=== PATIENT | female | born 1980 | race Caucasian/White ===

== ENCOUNTER 2018-02-24 00:25 | Observation (INO) | payer SELFPAY ==
[2018-02-24] MEDS ORDERED: Ondansetron 4 MG/2 ML SDV ONE (00:44)
[2018-02-24] MEDS ORDERED: Sodium Chloride 0.9% 1,000 ML IV ONE (00:51)
[2018-02-24 01:19] LABS: CHLORIDE,CL 107 mmol/L (101-111); SODIUM,NA 136 mmol/L (135-145)
[2018-02-24] MEDS ORDERED: NS + KCl 20mEq/L 1,000 ML IV SCH (01:30)
[2018-02-24] MEDS: Sodium Chloride 0.9% 10 ML Syringe FLUSH PRN ×2 (01:35→20:59)
[2018-02-24] MEDS ORDERED: Potassium Chloride 10 MEQ Tab.ER PO ONE (01:39)
--- NOTE | 2018-02-24 01:40 | EDM.PDOC ---
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 Provider was called to OB Stat. Pt states she felt she was having palpitations so she was checking her pulse. She stood up and states she woke up on her back on the floor. She states when she woke up she walked to the chair. She again lost consciousness and was lowered to the floor by her co-workers. Patient c/o feeling weak, and pain in the occiputal portion of her head after she hit it in the first fall. She also c/o right lower leg/ankle pain. Patient states she has hyperthyroidism and takes Tapazole. She states she has been feeling weak and not well for the past week. She states she has not taken her Tapazole for the past few days. She had taken an Atenolol a few hours prior to the episode for the palpitations she was having. She states she takes this PRN. Onset: Today, Sudden Occipital Pain Score (Numeric/FACES): 5 - Related Data Allergies Allergy/AdvReac Type Severity Reaction Status Date / Time propranolol Allergy Fainting Verified 02/24/18 00:59 Home Meds: Home Meds Methimazole 10 mg PO TID 10/01/16 [History] ClonazePAM [KlonoPIN] 1 mg PO BID PRN 02/24/18 [History] FLUoxetine [PROzac] 20 mg PO DAILY 02/24/18 [History] Past Medical History HEENT History: Reports: Impaired Vision, Other (See Below) Other HEENT History: Wears glasses & Contacts Cardiovascular History: Reports: Hypertension, Other (See Below) Other Cardiovascular History: Throid problems. 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 OB/BYN History: ovarian cysts Neurological History: Reports: Vertigo Psychiatric History: Reports: Anxiety, Depression Endocrine/Metabolic History: Reports: Hyperthyroidism - Infectious Disease History Infectious Disease History: Reports: Chicken Pox - Past Surgical History Respiratory Surgical History: Reports: Other (See Below) Other Respiratory Surgeries/Procedures: Breast reduction GI Surgical History: Reports: Cholecystectomy Female Surgical History: Reports: Breast Reduction, Section, Hysterectomy Endocrine Surgical History: Reports: None Other Musculoskeletal Surgeries/Procedures:: breast reduction Social & Family History - Family History Family Medical History: Noncontributory Musculoskeletal: Reports: RA, SLE - Tobacco Use Smoking Status *Q: Current Every Day Smoker Years of Tobacco use: 3 Packs/Tins Daily: 0.2 Used Tobacco, but Quit: No Month/Year Tobacco Last Used: October Second Hand Smoke Exposure: No - Caffeine Use Caffeine Use: Reports: Soda - Recreational Drug Use Recreational Drug Use: No ED ROS GENERAL - Review of Systems Review Of Systems: ROS reveals no pertinent complaints other than HPI. - Physical Exam Exam: See Below Exam Limited By: No Limitations General Appearance: Lethargic Eye Exam: Bilateral Eye: EOMI, PERRL (4 sluggish) Ears: Normal External Exam, Hearing Grossly Normal Nose: Normal Inspection Throat/Mouth: Normal Inspection, Normal Voice, No Airway Compromise Head Exam: Atraumatic, Normocephalic, Scalp Tenderness (occiputal after fall) Neck: Normal Inspection, Supple, Non-Tender, Full Range of Motion Respiratory/Chest: No Respiratory Distress, Lungs Clear, Normal Breath Sounds, No Accessory Muscle Use, Chest Non-Tender Cardiovascular: Normal Peripheral Pulses, Regular Rate, Rhythm, No Edema, No Gallop, No JVD, No Murmur, No Rub GI/Abdominal: Normal Bowel Sounds, Soft, Non-Tender, No Organomegaly, No Distention, No Abnormal Bruit, No Mass, Pelvis Stable (Female) Exam: Deferred Rectal (Female) Exam: Deferred Neuro Exam (Abbreviated): Alert, Oriented, CN II-XII Intact, Normal Cognition, Normal Reflexes, No Motor/Sensory Deficits Back Exam: Normal Inspection, Full Range of Motion, NT Extremities: Normal Inspection, Normal Range of Motion, No Pedal Edema, Normal Capillary Refill, Leg Pain (right lower leg/ankle) Psychiatric: Normal Affect, Normal Mood Skin Exam: Warm, Dry, Intact, Normal Color, No Rash EKG INTERPRETATION EKG Date: 02/24/18 Time: 00:43 Rhythm: Other (sinus tach) Comparison: No Change Course - Vital Signs Last Recorded V/S: Last Vital Signs Temp 99.1 F 02/24/18 01:51 Pulse 116 H 02/24/18 01:51 Resp 20 02/24/18 01:51 BP 135/85 02/24/18 01:51 Pulse Ox 96 02/24/18 01:51 Orthostatic Blood Pressure [ 116/79 Standing] Orthostatic Blood Pressure [ 129/74 Sitting] Orthostatic Blood Pressure [ 147/84 Supine] - Orders/Labs/Meds Orders: Active Orders 24 hr Category Date Time Status EKG 12 Lead [EKG Documentation Completion] [RC] URGENT Care 02/24/18 00:56 Active EKG Documentation Completion [RC] STAT Care 02/24/18 00:59 Active Peripheral IV Care [RC] . DIRECTED Care 02/24/18 00:59 Active Ankle Min 3V Rt [CR] Urgent Exams 02/24/18 00:57 Taken Head wo Cont [CT] Urgent Exams 02/24/18 00:54 Ordered DRUG SCREEN URINE BIORAD [URCHEM] Stat Lab 02/24/18 01:17 Ordered FREE T3 [REF] Stat Lab 02/24/18 00:45 Received FREE T4 [REF] Stat Lab 02/24/18 00:45 Received UA W/MICROSCOPIC [URIN] Stat Lab 02/24/18 00:59 Ordered NS + KCl 20mEq/L [Normal Saline with 20 mEq KCl] 1,000 Med 02/24/18 01:30 Active ml IV ASDIRECTED Sodium Chloride 0.9% [Saline Flush] Med 02/24/18 00:58 Active 10 ml FLUSH ASDIRECTED PRN Peripheral IV Insertion Adult [OM.PC] Stat Oth 02/24/18 00:58 Ordered Medication Orders Potassium Chloride/Sodium Chloride (Normal Saline With 20 Meq Kcl) 1,000 mls @ 999 mls/hr IV ASDIRECTED SARAH Last Admin: 02/24/18 01:38 Dose: 999 mls/hr Sodium Chloride (Saline Flush) 10 ml FLUSH ASDIRECTED PRN PRN Reason: Keep Vein Open Last Admin: 02/24/18 01:35 Dose: 10 ml Labs: Laboratory Tests 02/24/18 02/24/18 02/24/18 Range/Units 00:45 00:45 00:45 WBC 16.3 H (5.0-10.0) 10^3/uL RBC 4.91 (4.2-5.4) 10^6/uL Hgb 15.3 D (12.0-16.0) g/dL Hct 43.8 (37.0-47.0) % MCV 89.2 (80-100) fL MCH 31.2 (27.0-34.0) pg MCHC 34.9 (33.0-35.0) g/dL Plt Count 385 D (150-450) 10^3/uL Neut % (Auto) 63.1 (42.2-75.2) % Lymph % (Auto) 27.0 (20.5-50.1) % [place] % (Auto) 9.7 H (2-8) % Eos % (Auto) 0.1 L (1.0-3.0) % Baso % (Auto) 0.1 (0.0-1.0) % Sodium 136 (135-145) mmol/L Potassium 2.9 L (3.6-5.0) mmol/L Chloride 107 (101-111) mmol/L Carbon Dioxide 19.0 L (21.0-31.0) mmol/L Anion Gap 12.9 BUN 27 H (7-18) mg/dL Creatinine 1.0 (0.6-1.3) mg/dL Est Cr Clr Drug Dosing 58.12 mL/min Estimated GFR (MDRD) > 60 BUN/Creatinine Ratio 27.00 Glucose 131 H (74-105) mg/dL Calcium 8.3 L (8.4-10.2) mg/dl Total Bilirubin 0.8 (0.2-1.0) mg/dL AST 27 (10-42) IU/L ALT 27 (10-60) IU/L Alkaline Phosphatase 93 (42-121) IU/L Troponin I < 0.02 (0.00-0.02) ng/ml Total Protein 7.4 (6.7-8.2) g/dl Albumin 4.0 (3.2-5.5) g/dl Globulin 3.4 Albumin/Globulin Ratio 1.18 TSH, Ultra Sensitive 0.07 L (0.45-5.33) uIu/mL Meds: Medications Generic Name Dose Route Start Last Admin Trade Name Freq PRN Reason Stop Dose Admin Potassium Chloride/Sodium Chloride 1,000 mls @ 999 mls/hr 02/24/18 01:30 11/01 01:38 Normal Saline With 20 Meq Kcl IV 999 mls/hr ASDIRECTED SARAH Administration Sodium Chloride 10 ml 02/24/18 00:58 02/24/18 01:35 Saline Flush FLUSH 10 ml ASDIRECTED PRN Administration Keep Vein Open Discontinued Medications Generic Name Dose Route Start Last Admin Trade Name Michael PRN Reason Stop Dose Admin Sodium Chloride 1,000 mls @ 999 mls/hr 02/24/18 00:51 02/24/18 00:32 Normal Saline IV 02/24/18 01:51 999 mls/hr .BOLUS ONE Administration Metoprolol Tartrate 50 mg 02/24/18 02:30 Lopressor PO 02/24/18 02:31 ONETIME ONE Ondansetron HCl Confirm 02/24/18 00:44 02/24/18 00:45 Zofran Administered 02/24/18 00:45 4 mg Dose Administration 4 mg .ROUTE .STK-MED ONE Ondansetron HCl 4 mg 02/24/18 01:43 02/24/18 01:47 Zofran Odt PO 02/24/18 01:44 4 mg ONETIME ONE Administration Potassium Chloride 20 meq 02/24/18 01:39 02/24/18 01:47 Klor-Con 10 PO 02/24/18 01:40 20 meq ONETIME ONE Administration - Radiology Interpretation Free Text/Narrative:: Right ankle xray: IMPRESSION: No evidence for acute fracture or dislocation. Thank you for allowing us to participate in the care of your patient. Dictated and Authenticated by: Nick Bass MD 02/24/2018 1:24 AM Central Time ([place] & [place]) Ct of head without contrast: IMPRESSION: No evidence for acute intracranial pathology. Thank you for allowing us to participate in the care of your patient. Dictated and Authenticated by: Nick Bass MD 02/24/2018 1:33 AM Central Time ([place] & [place]) See rad report - Re-Assessments/Exams Free Text/Narrative Re-Assessment/Exam: 02/24/18 02:48 Discussed pt case with Dr. Holm. He agreed to admit the patient observation. His instructions were for a dose of Metoprolol 50mg be given to the patient prior to admit. He would also like the patient to take a dose of her home medication Tapazole. Departure - Departure Time of Disposition: 02:50 Disposition: Refer to Observation Condition: Fair Clinical Impression: Hypokalemia, Graves disease Syncopal episodes Qualifiers: Syncope type: unspecified Qualified Code(s): R55 - Syncope and collapse - Discharge Information Forms: ED Department Discharge - My Orders Last 24 Hours: My Active Orders 02/24/18 00:45 FREE T3 [REF] Stat FREE T4 [REF] Stat 02/24/18 00:54 Head wo Cont [CT] Urgent 02/24/18 00:56 EKG 12 Lead [EKG Documentation Completion] [RC] URGENT 02/24/18 00:57 Ankle Min 3V Rt [CR] Urgent 02/24/18 00:58 Sodium Chloride 0.9% [Saline Flush] 10 ml FLUSH ASDIRECTED PRN Peripheral IV Insertion Adult [OM.PC] Stat 02/24/18 00:59 EKG Documentation Completion [RC] STAT Peripheral IV Care [RC] . DIRECTED UA W/MICROSCOPIC [URIN] Stat 02/24/18 01:17 DRUG SCREEN URINE BIORAD [URCHEM] Stat 02/24/18 01:30 NS + KCl 20mEq/L [Normal Saline with 20 mEq KCl] 1,000 ml IV ASDIRECTED - Assessment/Plan Last 24 Hours: My Active Orders 02/24/18 00:45 FREE T3 [REF] Stat FREE T4 [REF] Stat 02/24/18 00:54 Head wo Cont [CT] Urgent 02/24/18 00:56 EKG 12 Lead [EKG Documentation Completion] [RC] URGENT 02/24/18 00:57 Ankle Min 3V Rt [CR] Urgent 02/24/18 00:58 Sodium Chloride 0.9% [Saline Flush] 10 ml FLUSH ASDIRECTED PRN Peripheral IV Insertion Adult [OM.PC] Stat 02/24/18 00:59 EKG Documentation Completion [RC] STAT Peripheral IV Care [RC] . DIRECTED UA W/MICROSCOPIC [URIN] Stat 02/24/18 01:17 DRUG SCREEN URINE BIORAD [URCHEM] Stat 02/24/18 01:30 NS + KCl 20mEq/L [Normal Saline with 20 mEq KCl] 1,000 ml IV ASDIRECTED
[2018-02-24] MEDS ORDERED: Ondansetron 4 MG Tab.DIS PO ONE (01:43)
[2018-02-24] MEDS ORDERED: Metoprolol Tartrate 50 MG Tab PO ONE (02:30)
[2018-02-24] MEDS ORDERED: Sodium Chloride 0.9% 1,000 ML IV SCH (10:15)
[2018-02-24] MEDS: Nicotine 7 MG/24 Hr Patch TRDERM SCH (10:56)
[2018-02-24] MEDS: Sodium Chloride 0.9% with KCl 1,000 ML IV SCH ×3 (10:57→21:02)
[2018-02-24] MEDS: Methimazole 5 MG Tab PO SCH ×3 (10:57→20:42)
[2018-02-24] MEDS: FLUoxetine 10 MG Cap PO SCH (10:57)
[2018-02-24] MEDS: Atenolol 50 MG Tab PO SCH ×2 (11:01→20:43)
[2018-02-24] MEDS: Ibuprofen 400 MG Tab PO PRN ×3 (11:01→22:51)
[2018-02-24] MEDS ORDERED: Loperamide 2 MG Cap PO PRN (11:25)
--- NOTE | 2018-02-24 11:26 | PCM.HP ---
H&P History of Present Illness - General Date of Service: 02/24/18 Admit Problem/Dx: Admission Diagnosis/Problem Admission Diagnosis/Problem Hyperthyroidism Source of Information: Patient History Limitations: Reports: No Limitations - History of Present Illness Initial Comments - Free Text/Narative: 37 yo F with PMH of Graves' disease/hyperthyroidism diagnosed almost one year ago and being followed by Dr. Saavedra (Sales Assistant) who was evaluated in the ED in the early hours of this morning after palpitations and two episodes of syncope. 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 Palpitations were accompanied by chest pain, intermittent, 3/10, resolved spontaneously with palpitations. She then had two episodes of syncope, one of them was witnessed. Transient loss of consciousness was for a few minutes. There was no tonic clonic contractions, no incontinence of urine or feces, no drooling of saliva. She has no history of seizures. Patient admits to poor compliance to her methimazole doses. She was found to be tachycardic in the ER, was given methimazole and metoprolol and symptoms improved. By the time I saw her, she was rate controlled in sinus rhythm. ROS reveals chronic diarrhea, which has gotten worse in the past few days. Also has right ankle pain Onset of Symptoms: Reports: Today Duration of Symptoms: Reports: Hour(s): Associated Symptoms: Reports: Other (palpitation, diarrhea, right ankle pain) Occipital Pain Score (Numeric/FACES): 5 - Related Data Allergies/Adverse Reactions: Allergies Allergy/AdvReac Type Severity Reaction Status Date / Time propranolol Allergy Fainting Verified 02/24/18 00:59 Home Medications: Home Meds Methimazole 10 mg PO TID 10/01/16 [History] ClonazePAM [KlonoPIN] 1 mg PO BID PRN 02/24/18 [History] FLUoxetine [PROzac] 20 mg PO DAILY 02/24/18 [History] Past Medical History HEENT History: Reports: Impaired Vision, Other (See Below) Other HEENT History: Wears glasses & Contacts Cardiovascular History: Reports: Hypertension, Other (See Below) Other Cardiovascular History: Throid problems. 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 OB/BYN History: ovarian cysts Neurological History: Reports: Vertigo Psychiatric History: Reports: Anxiety, Depression Endocrine/Metabolic History: Reports: Hyperthyroidism - Infectious Disease History Infectious Disease History: Reports: Chicken Pox - Past Surgical History Respiratory Surgical History: Reports: Other (See Below) Other Respiratory Surgeries/Procedures: Breast reduction GI Surgical History: Reports: Cholecystectomy Female Surgical History: Reports: Breast Reduction, Section, Hysterectomy Endocrine Surgical History: Reports: None Other Musculoskeletal Surgeries/Procedures:: breast reduction Social & Family History - Family History Family Medical History: Noncontributory Musculoskeletal: Reports: RA, SLE - Tobacco Use Smoking Status *Q: Current Every Day Smoker Years of Tobacco use: 3 Packs/Tins Daily: 0.2 Used Tobacco, but Quit: No Month/Year Tobacco Last Used: October Second Hand Smoke Exposure: No - Caffeine Use Caffeine Use: Reports: Soda - Recreational Drug Use Recreational Drug Use: No H&P Review of Systems - Review of Systems: Review Of Systems: See Below HEENT: Reports: No Symptoms Pulmonary: Reports: No Symptoms Cardiovascular: Reports: Chest Pain Gastrointestinal: Reports: Diarrhea Genitourinary: Reports: No Symptoms Musculoskeletal: Reports: No Symptoms Skin: Reports: No Symptoms Psychiatric: Reports: No Symptoms Exam - Exam Exam: See Below - Vital Signs Vital Signs: Last Vital Signs Temp 36.5 C 02/24/18 08:43 Pulse 81 02/24/18 11:01 Resp 20 02/24/18 08:43 BP 134/74 02/24/18 11:01 Pulse Ox 100 02/24/18 10:04 Orthostatic Blood Pressure [ 116/79 Standing] Orthostatic Blood Pressure [ 129/74 Sitting] Orthostatic Blood Pressure [ 147/84 Supine] Weight: 68.492 kg - Exam General: Alert, Oriented HEENT: Conjunctiva Clear Neck: Supple, Trachea Midline Lungs: Clear to Auscultation, Normal Respiratory Effort Cardiovascular: Regular Rate, Regular Rhythm GI/Abdominal Exam: Normal Bowel Sounds Extremities: Other (right ankle is splinted, normal sensation in right foot and leg, decreased range of motion/tenderness at the right ankle) - Patient Data Lab Results Last 24 hrs: Laboratory Results - last 24 hr 02/24/18 02/24/18 02/24/18 Range/Units 00:45 00:45 00:45 WBC 16.3 H (5.0-10.0) 10^3/uL RBC 4.91 (4.2-5.4) 10^6/uL Hgb 15.3 D (12.0-16.0) g/dL Hct 43.8 (37.0-47.0) % MCV 89.2 (80-100) fL MCH 31.2 (27.0-34.0) pg MCHC 34.9 (33.0-35.0) g/dL Plt Count 385 D (150-450) 10^3/uL Neut % (Auto) 63.1 (42.2-75.2) % Lymph % (Auto) 27.0 (20.5-50.1) % [place] % (Auto) 9.7 H (2-8) % Eos % (Auto) 0.1 L (1.0-3.0) % Baso % (Auto) 0.1 (0.0-1.0) % Sodium 136 (135-145) mmol/L Potassium 2.9 L (3.6-5.0) mmol/L Chloride 107 (101-111) mmol/L Carbon Dioxide 19.0 L (21.0-31.0) mmol/L Anion Gap 12.9 BUN 27 H (7-18) mg/dL Creatinine 1.0 (0.6-1.3) mg/dL Est Cr Clr Drug Dosing 58.12 mL/min Estimated GFR (MDRD) > 60 BUN/Creatinine Ratio 27.00 Glucose 131 H (74-105) mg/dL Calcium 8.3 L (8.4-10.2) mg/dl Total Bilirubin 0.8 (0.2-1.0) mg/dL AST 27 (10-42) IU/L ALT 27 (10-60) IU/L Alkaline Phosphatase 93 (42-121) IU/L Troponin I < 0.02 (0.00-0.02) ng/ml Total Protein 7.4 (6.7-8.2) g/dl Albumin 4.0 (3.2-5.5) g/dl Globulin 3.4 Albumin/Globulin Ratio 1.18 TSH, Ultra Sensitive 0.07 L (0.45-5.33) uIu/mL Urine Color (YELLOW) Urine Appearance (CLEAR) Urine pH (5.0-9.0) Ur Specific [place] (1.005-1.030) Urine Protein (NEGATIVE) Urine Glucose (UA) (NEGATIVE) Urine Ketones (NEGATIVE) Urine Occult Blood (NEGATIVE) Urine Nitrite (NEGATIVE) Urine Bilirubin (NEGATIVE) Urine Urobilinogen (0.2-1.0) mg/dL Ur Leukocyte Esterase (NEGATIVE) Urine RBC /HPF Urine WBC (0-5/HPF) /HPF Ur Epithelial Cells /HPF Amorphous Sediment (0/HPF) /HPF Urine Bacteria (0-FEW/HPF) /HPF Urine Mucus /LPF Urine Opiates Screen (NEGATIVE) Ur Oxycodone Screen (NEGATIVE) Urine Methadone Screen (NEGATIVE) Ur Barbiturates Screen (NEGATIVE) U Tricyclic Antidepress (NEGATIVE) Ur Phencyclidine Scrn (NEGATIVE) Ur Amphetamine Screen (NEGATIVE) U Methamphetamines Scrn (NEGATIVE) Urine MDMA Screen (NEGATIVE) U Benzodiazepines Scrn (NEGATIVE) Urine Cocaine Screen (NEGATIVE) U Marijuana (THC) Screen (NEGATIVE) 02/24/18 02/24/18 Range/Units 04:20 04:20 WBC (5.0-10.0) 10^3/uL RBC (4.2-5.4) 10^6/uL Hgb (12.0-16.0) g/dL Hct (37.0-47.0) % MCV (80-100) fL MCH (27.0-34.0) pg MCHC (33.0-35.0) g/dL Plt Count (150-450) 10^3/uL Neut % (Auto) (42.2-75.2) % Lymph % (Auto) (20.5-50.1) % [place] % (Auto) (2-8) % Eos % (Auto) (1.0-3.0) % Baso % (Auto) (0.0-1.0) % Sodium (135-145) mmol/L Potassium (3.6-5.0) mmol/L Chloride (101-111) mmol/L Carbon Dioxide (21.0-31.0) mmol/L Anion Gap BUN (7-18) mg/dL Creatinine (0.6-1.3) mg/dL Est Cr Clr Drug Dosing mL/min Estimated GFR (MDRD) BUN/Creatinine Ratio Glucose (74-105) mg/dL Calcium (8.4-10.2) mg/dl Total Bilirubin (0.2-1.0) mg/dL AST (10-42) IU/L ALT (10-60) IU/L Alkaline Phosphatase (42-121) IU/L Troponin I (0.00-0.02) ng/ml Total Protein (6.7-8.2) g/dl Albumin (3.2-5.5) g/dl Globulin Albumin/Globulin Ratio TSH, Ultra Sensitive (0.45-5.33) uIu/mL Urine Color Yellow (YELLOW) Urine Appearance Turbid (CLEAR) Urine pH 5.0 (5.0-9.0) Ur Specific [place] >= 1.030 (1.005-1.030) Urine Protein Negative (NEGATIVE) Urine Glucose (UA) Negative (NEGATIVE) Urine Ketones Negative (NEGATIVE) Urine Occult Blood Small H (NEGATIVE) Urine Nitrite Negative (NEGATIVE) Urine Bilirubin Negative (NEGATIVE) Urine Urobilinogen 0.2 (0.2-1.0) mg/dL Ur Leukocyte Esterase Large H (NEGATIVE) Urine RBC 0-5 /HPF Urine WBC 30-40 H (0-5/HPF) /HPF Ur Epithelial Cells Many H /HPF Amorphous Sediment Moderate H (0/HPF) /HPF Urine Bacteria Moderate H (0-FEW/HPF) /HPF Urine Mucus Rare /LPF Urine Opiates Screen Negative (NEGATIVE) Ur Oxycodone Screen Positive H (NEGATIVE) Urine Methadone Screen Negative (NEGATIVE) Ur Barbiturates Screen Negative (NEGATIVE) U Tricyclic Antidepress Negative (NEGATIVE) Ur Phencyclidine Scrn Negative (NEGATIVE) Ur Amphetamine Screen Negative (NEGATIVE) U Methamphetamines Scrn Negative (NEGATIVE) Urine MDMA Screen Negative (NEGATIVE) U Benzodiazepines Scrn Negative (NEGATIVE) Urine Cocaine Screen Negative (NEGATIVE) U Marijuana (THC) Screen Negative (NEGATIVE) Result Diagrams: 02/24/18 00:45 02/24/18 00:45 EKG INTERPRETATION Rhythm: NSR Problem List Initiated/Reviewed/Updated: Yes Orders Last 24hrs: Active Orders 24 hr Category Date Time Status Patient Status [ADT] Routine ADT 02/24/18 10:03 Active Ambulate [RC] ASDIRECTED Care 02/24/18 10:03 Active Ambulate [RC] PER UNIT ROUTINE Care 02/24/18 10:05 Active Bedrest Bathroom Privileges [RC] ASDIRECTED Care 02/24/18 10:03 Active Cardiac Monitoring [RC] CONTINUOUS Care 02/24/18 10:04 Active Height and Weight [RC] DAILY Care 02/24/18 10:03 Active Intake and Output [RC] QSHIFT Care 02/24/18 10:04 Active Oxygen Therapy [RC] PRN Care 02/24/18 10:03 Active Peripheral IV Care [RC] . DIRECTED Care 02/24/18 00:59 Active Pulse Oximetry [RC] PRN Care 02/24/18 10:04 Active VTE/DVT Education [RC] PER UNIT ROUTINE Care 02/24/18 10:03 Active Vital Signs [RC] Q4H Care 02/24/18 10:03 Active OT Evaluation and Treatment [CONS] Routine Cons 02/24/18 10:03 Active PT Evaluation and Treatment [CONS] Routine Cons 02/24/18 10:03 Active Regular Diet [DIET] Diet 02/24/18 Breakfast Active DRUG SCREEN URINE BIORAD [URCHEM] Stat Lab 02/24/18 04:20 Ordered FREE T3 [REF] Stat Lab 02/24/18 00:45 Received FREE T4 [REF] Stat Lab 02/24/18 00:45 Received UA W/MICROSCOPIC [URIN] Stat Lab 02/24/18 04:20 Ordered Atenolol [Tenormin] Med 02/24/18 10:15 Active 50 mg PO BID Check Patch Med 02/24/18 21:00 Active 1 ea TRDERM BEDTIME ClonazePAM [KlonoPIN] Med 02/24/18 10:15 Active 1 mg PO BID PRN FLUoxetine [PROzac] Med 02/24/18 10:30 Active 20 mg PO DAILY Ibuprofen [Motrin] Med 02/24/18 10:03 Active 400 mg PO Q6H PRN Methimazole Med 02/24/18 10:30 Active 10 mg PO TID Nicotine [Habitrol] Med 02/24/18 10:15 Active 7 mg TRDERM DAILY Sodium Chloride 0.9% [Saline Flush] Med 02/24/18 00:58 Active 10 ml FLUSH ASDIRECTED PRN Sodium Chloride 0.9% with KCl [Normal Saline with 40 Med 02/24/18 10:30 Active mEq KCl] 1,000 ml IV ASDIRECTED Antiembolic Hose [OM.PC] Per Unit Routine Oth 04/12/18 10:05 Ordered Peripheral IV Insertion Adult [OM.PC] Stat Oth 02/24/18 00:58 Ordered Sequential Compression Device [OM.PC] Per Unit Routine Oth 02/24/18 10:05 Ordered Resuscitation Status Routine Resus Stat 02/24/18 10:03 Ordered Medication Orders Atenolol (Tenormin) 50 mg PO BID [facility] Last Admin: 02/24/18 11:01 Dose: 50 mg Clonazepam (Klonopin) 1 mg PO BID PRN PRN Reason: ANXIETY Fluoxetine HCl (Prozac) 20 mg PO DAILY [facility] Last Admin: 02/24/18 10:57 Dose: 20 mg Potassium Chloride/Sodium Chloride (Normal Saline With 40 Meq Kcl) 1,000 mls @ 125 mls/hr IV ASDIRECTED [facility] Last Admin: 02/24/18 10:57 Dose: 125 mls/hr Ibuprofen (Motrin) 400 mg PO Q6H PRN PRN Reason: Pain (mild 1-3) Last Admin: 02/24/18 11:01 Dose: 400 mg Methimazole (Methimazole) 10 mg PO TID [facility] Last Admin: 02/24/18 10:57 Dose: 10 mg Miscellaneous Information (Check Patch) 1 ea TRDERM BEDTIME [facility] Nicotine (Habitrol) 7 mg TRDERM DAILY [facility] Last Admin: 02/24/18 10:56 Dose: Not Given Sodium Chloride (Saline Flush) 10 ml FLUSH ASDIRECTED PRN PRN Reason: Keep Vein Open Last Admin: 02/24/18 01:35 Dose: 10 ml Assessment/Plan Comment:: 37 yo F with hx of Graves' disease who presents with palpitations, syncope, diarrhea 1. Syncope, Palpitations, Diarrhea likely 2/2 poorly controlled hyperthyroidism, TSH is very low. I counselled patient extensively on the need to be compliant with medications check Free T3, Free T4 continue methimazole start atenolol 50 mg bid follow up with Dr. Grey (Endocrinology in outpatient clinic) monitor on tele for the next 24 hours serial EKGs consider Holter monitor if syncope re-occurs imodium prn for diarrhea 2. Tobacco smoking counselled on cessation of tobacco smoking nicotine patches 3. Right Ankle Sprain PT/OT Pain management 4. DVT ppx low risk ambulate patient
[2018-02-24] MEDS: Acetaminophen 325 MG Tab PO PRN ×2 (12:54→19:33)
[2018-02-24] MEDS: ClonazePAM 0.5 MG Tab PO PRN ×2 (13:48→23:00)
[2018-02-24 20:06] LABS: CHLORIDE,CL 114 mmol/L (101-111); SODIUM,NA 139 mmol/L (135-145)
[2018-02-24] MEDS ORDERED: Sodium Chloride 0.9% 10 ML Syringe FLUSH PRN (20:40)
[2018-02-24] MEDS ORDERED: Check NICOTINE Patch TRDERM SCH (21:00)
[2018-02-25 06:44] LABS: CHLORIDE,CL 109 mmol/L (101-111); SODIUM,NA 137 mmol/L (135-145)
[2018-02-25 07:34] VITALS: BP 121/73
[2018-02-25] MEDS: Nicotine 7 MG/24 Hr Patch TRDERM SCH (08:44)
[2018-02-25] MEDS: FLUoxetine 10 MG Cap PO SCH (08:45)
[2018-02-25] MEDS: Methimazole 5 MG Tab PO SCH (08:45)
[2018-02-25] MEDS: Atenolol 50 MG Tab PO SCH (08:45)
[2018-02-25] MEDS: Ibuprofen 400 MG Tab PO PRN (08:50)
--- NOTE | 2018-02-25 09:01 | DISCH ---
DOS: 02/25/2018 FINAL DIAGNOSES: 1. Syncope secondary to supraventricular tachycardia. 2. Graves disease. 3. Right ankle sprain. 4.Hypokalemia HISTORY OF PRESENT ILLNESS: Please see H and P. PERTINENT LAB, X-RAY, AND OTHER TESTS: Please see H and P. HOSPITAL COURSE: The patient was admitted to telemetry floor. She was resumed on her methimazole and atenolol as at home as she was not so compliant with her medication, and the patient did well with the above regimen.Potassium was repleted . She remained in sinus rhythm with no other significant arrhythmia. Free T3 and free T4 were sent, and these came back within normal limits. Because of the right ankle and right foot pain, she had an x-ray of the right foot, which did not show any fracture, and this was felt to be secondary to sprain/contusion. The patient did well. The rest of the hospital days were unremarkable, and she was subsequently discharged. She was to follow up with Dr. Grey in about 2 weeks as previously scheduled. The patient was given Vicoprofen for the next 7 days for the right foot pain/contusion.Ff up with PMD in 1 week CONDITION ON DISCHARGE: Improved. [facility] /[id number] DIMITRI
--- NOTE | 2018-02-25 10:49 | PN ---
DATE: 02/25/2018 SUBJECTIVE: The patient this morning is feeling much better. So far has not had any problems with syncope and telemetry has been sinus rhythm. She is still complaining of right foot pain from the condition she sustained when she passed out, but otherwise she denies any chest pain, palpitation, shortness of breath, nor any other significant complaints. LABORATORY DATA: Lab workup this morning, Chem-6 is unremarkable and free T3 is 3.5, which is within normal limits and free T4 is 0.99. OBJECTIVE: Vital Signs: Blood pressure is 121/73, pulse of 67, respirations 18. HEART: Regular rate and rhythm. Normal S1 and S2. No gallops. No rubs. Lungs: Equal bilaterally. No crackles. No wheezing. Abdomen: Soft and nontender. Bowel sounds positive. Extremities: Remarkable for some mild Randall and swelling on the dorsal aspect of the right foot. PLAN: We will continue with her present management, and we will discharge the patient home today, and we will set her up for followup appointment with Dr. Grey. I am also going to put her on Vicoprofen 1 tablet t.i.d. p.r.n. for the next 1 week for the contusion of the right foot. [facility] /[id number]
== END 2018-02-25 09:50 | disposition home or self-care (01) ==
LOC: DL.ED 00:25 → UNDOADMOB 02:49 → DL.MS 02:49
PROVIDERS: ADMIT Hospitalist; ATTEND Hospitalist
DX: I47.1 Supraventricular tachycardia (principal); E05.00 Thyrotoxicosis with diffuse goiter without thyrotoxic crisis or storm; S93.401A Sprain of unspecified ligament of right ankle, initial encounter; E87.6 Hypokalemia; I10 Essential (primary) hypertension; F41.9 Anxiety disorder, unspecified; F32.9 Major depressive disorder, single episode, unspecified; F17.210 Nicotine dependence, cigarettes, uncomplicated; Z88.8 Allergy status to other drugs, medicaments and biological substances; Z79.899 Other long term (current) drug therapy; Z90.49 Acquired absence of other specified parts of digestive tract; Z90.710 Acquired absence of both cervix and uterus
CPT/HCPCS: 36415; 70450; 73610; 80048; 80053; 80305; 81001; 82248; 83735; 84100; 84439; 84443; 84481; 84484; 85025; 93005; 93010; 96361; 96365; 99285; A9270; J2405; J3480; J7030; J7050